=== PATIENT | male | born 1985 | race Caucasian/White ===

== ENCOUNTER 2017-07-04 13:40 | Emergency (ER) | payer OTHER ==
[~2017-07-04] VITALS: Ht 170.2 cm; Wt 75.1 kg
[~2017-07-04 13:40] MED LIST: ADDERALL XR 2525 MG PO; BUPROPION HCL150 M2 PO; PRAZOSIN HCL5 MG PO; SOMA350 MG PO; XANAX XR1 MG PO; XANAX1 MG PO
[2017-07-04 14:09] VITALS: BP 0/0
[2017-07-04] MEDS ORDERED: VIBRAMYCIN100 MG PO (15:41)
== END 2017-07-04 15:51 | disposition home or self-care (01) ==
LOC: EME 13:40
DX: L02.01 Cutaneous abscess of face (principal); F17.200 Nicotine dependence, unspecified, uncomplicated
CPT/HCPCS: 99281; 99284